=== PATIENT | male | born 1945 | race Hispanic/Latino ===

== ENCOUNTER 2019-05-31 23:51 | Emergency (ER) | payer MEDICARE ==
--- NOTE | 2019-06-01 00:24 | Emergency Department Report ---
ED Altered Mental Status HPI - General Chief Complaint: Altered Mental Status Stated Complaint: MH EVALUATION Time Seen by Provider: 06/01/19 00:02 Source: EMS Mode of arrival: Stretcher Limitations: Altered Mental Status - History of Present Illness Initial Comments: Patient is a 73-year-old male that presents emergency with altered mental status and combative behavior and agitation. Patient is brought in by EMS. Patient is currently oriented 1. Patient is lethargic but arousable. Report received from EMS. EMS states that the patient has been off his meds for 4 weeks and has been refusing his meds per family. Patient then became combative with the family and aggressive towards police. Please call for EMS to transport patient to the hospital. Patient was given Haldol, Benadryl and Versed in route by EMS due to agitation and being combative with EMS. MD Complaint: altered mental status, confusion -: Sudden Severity: severe Consistency of Symptoms: waxing and waning - Related Data Home Medications Medication Instructions Recorded Confirmed Last Taken No Known Home Medications [No 06/01/19 06/02/19 Unknown Reported Home Medications] Allergies Allergy/AdvReac Type Severity Reaction Status Date / Time No Known Allergies Allergy Unverified 06/01/19 01:08 ED Review of Systems ROS: Stated complaint: MH EVALUATION Other details as noted in HPI Comment: Unobtainable due to pts medical conditions ED Past Medical Hx - Past Medical History Previous Medical History?: Yes Hx Hypertension: Yes Hx Psychiatric Treatment: Yes Additional medical history: dementia, schizo, paranoia - Surgical History Past Surgical History?: No Additional Surgical History: uknown - Family History Family history: no significant - Social History Smoking Status: Unknown if ever smoked Substance Use Type: None - Medications Home Medications: Home Medications Medication Instructions Recorded Confirmed Last Taken Type No Known Home Medications [No 06/01/19 06/02/19 Unknown History Reported Home Medications] ED Physical Exam - General Limitations: Altered Mental Status General appearance: alert, lethargic - Head Head exam: Present: atraumatic, normocephalic - Eye Eye exam: Present: normal appearance, PERRL Pupils: Present: normal accommodation - ENT ENT exam: Present: mucous membranes moist - Neck Neck exam: Present: normal inspection - Respiratory Respiratory exam: Present: normal lung sounds bilaterally. Absent: respiratory distress, wheezes, rales - Cardiovascular Cardiovascular Exam: Present: regular rate, normal rhythm. Absent: systolic murmur, diastolic murmur, rubs, gallop - GI/Abdominal GI/Abdominal exam: Present: soft, normal bowel sounds - Rectal Rectal exam: Present: deferred - Extremities Exam Extremities exam: Present: normal inspection - Back Exam Back exam: Present: normal inspection - Neurological Exam Neurological exam: Present: altered - Expanded Neurological Exam Expanded Best Eye Response (Jaz): (2) open to pain Best Motor Response (Jaz): (5) localizes to pain Best Verbal Response (Bryce): (4) confused conversation Jaz Total: 11 - Psychiatric Psychiatric exam: Present: normal affect, normal mood - Skin Skin exam: Present: warm, dry, intact, normal color. Absent: rash - Assessment Assessment Interval: Baseline - Level of Consciousness 1a. Level of Consciousness: arousable/minor stimuli - LOC Questions 1b. LOC Questions: answers 1 question correctly - LOC Command 1c. LOC Commands: performs tasks correctly - Best Gaze 2. Best Gaze: normal - Visual 3. Visual: no visual loss - Facial Palsy 4. Facial Palsy: normal symmetrical movement - Motor Arm 5a. Motor Arm Left: no drift 5b. Motor Arm Right: no drift - Motor Leg 6a. Motor Leg Left: no drift 6b. Motor Leg Right: no drift - Limb Ataxia 7. Limb Ataxia: absent - Sensory 8. Sensory: normal - Best Language 9. Best Language: no aphasia - Dysarthria 10. Dysarthria: normal - Extinction and Inattention 11. Extinction/Inattention: no abnormality - Scoring Total Score: 2 Stroke Severity: Minor Stroke ED Course Vital Signs 05/31/19 06/01/19 06/01/19 23:58 00:00 00:01 Temperature Pulse Rate 89 86 88 Respiratory 20 13 20 Rate Blood Pressure 97/58 Blood Pressure [Left] O2 Sat by Pulse 89 92 90 Oximetry 06/01/19 06/01/19 06/01/19 00:15 00:30 00:45 Temperature Pulse Rate 80 80 77 Respiratory 17 18 17 Rate Blood Pressure 106/62 103/65 107/71 Blood Pressure [Left] O2 Sat by Pulse 100 100 100 Oximetry 06/01/19 06/01/19 06/01/19 01:00 01:15 01:30 Temperature Pulse Rate 77 73 74 Respiratory 12 16 15 Rate Blood Pressure 110/74 105/60 100/57 Blood Pressure [Left] O2 Sat by Pulse 100 100 Oximetry 06/01/19 06/01/19 06/01/19 01:45 02:00 02:05 Temperature Pulse Rate 80 74 Respiratory 15 16 Rate Blood Pressure 118/69 103/58 Blood Pressure [Left] O2 Sat by Pulse 97 96 99 Oximetry 06/01/19 06/01/19 06/01/19 02:15 02:30 02:45 Temperature Pulse Rate 73 74 81 Respiratory 16 16 16 Rate Blood Pressure 101/58 108/65 121/77 Blood Pressure [Left] O2 Sat by Pulse 94 Oximetry 06/01/19 06/01/19 06/01/19 03:00 03:16 08:30 Temperature 97.3 F L Pulse Rate 68 102 H 96 H Respiratory 17 14 20 Rate Blood Pressure 121/77 101/47 Blood Pressure 145/83 [Left] O2 Sat by Pulse 92 95 96 Oximetry 06/01/19 19:30 Temperature 98 F Pulse Rate 83 Respiratory 16 Rate Blood Pressure Blood Pressure 139/67 [Left] O2 Sat by Pulse 100 Oximetry - Reevaluation(s) Reevaluation #1: Patient is lethargic but easy to arouse. Patient is still alert and oriented 2 06/01/19 02:40 Reevaluation #2: Patient is alert and oriented 3. Patient able to stand to get a urine sample. 06/01/19 03:20 Reevaluation #3: I discussed all results with patient. Patient has been placed on a 1013 and will remain in the ER until accepted into appropriate psychiatric facility. 06/01/19 03:53 - Lab Data Result diagrams: 06/01/19 01:05 06/01/19 01:05 Lab Results 06/01/19 06/01/19 06/01/19 Range/Units 01:05 01:05 01:05 WBC 9.0 (4.5-11.0) K/mm3 RBC 4.32 (3.65-5.03) M/mm3 Hgb 14.2 (11.8-15.2) gm/dl Hct 42.0 (35.5-45.6) % MCV 97 H (84-94) fl MCH 33 H (28-32) pg MCHC 34 (32-34) % RDW 15.1 (13.2-15.2) % Plt Count 388 (140-440) K/mm3 Lymph % (Auto) 23.7 (13.4-35.0) % [place] % (Auto) 11.0 H (0.0-7.3) % Eos % (Auto) 1.7 (0.0-4.3) % Baso % (Auto) 0.9 (0.0-1.8) % Lymph # 2.1 (1.2-5.4) K/mm3 [place] # 1.0 H (0.0-0.8) K/mm3 Eos # 0.2 (0.0-0.4) K/mm3 Baso # 0.1 (0.0-0.1) K/mm3 Seg Neutrophils % 62.7 (40.0-70.0) % Seg Neutrophils # 5.6 (1.8-7.7) K/mm3 Sodium 140 (137-145) mmol/L Potassium 3.9 (3.6-5.0) mmol/L Chloride 105.2 (98-107) mmol/L Carbon Dioxide 27 (22-30) mmol/L Anion Gap 12 mmol/L BUN 14 (9-20) mg/dL Creatinine 0.9 (0.8-1.5) mg/dL Estimated GFR > 60 ml/min BUN/Creatinine Ratio 16 % Glucose 104 H (75-100) mg/dL Calcium 9.7 (8.4-10.2) mg/dL Total Bilirubin 0.40 (0.1-1.2) mg/dL AST 19 (5-40) units/L ALT 14 (7-56) units/L Alkaline Phosphatase 135 H (35-129) units/L Total Creatine Kinase 397 H (55-170) units/L Troponin T < 0.010 (0.00-0.029) ng/mL Total Protein 6.6 (6.3-8.2) g/dL Albumin 3.7 L (3.9-5) g/dL Albumin/Globulin Ratio 1.3 % Urine Color (Yellow) Urine Turbidity (Clear) Urine pH (5.0-7.0) Ur Specific [place] (1.003-1.030) Urine Protein (Negative) mg/dL Urine Glucose (UA) (Negative) mg/dL Urine Ketones (Negative) mg/dL Urine Blood (Negative) Urine Nitrite (Negative) Urine Bilirubin (Negative) Urine Urobilinogen (<2.0) mg/dL Ur Leukocyte Esterase (Negative) Urine WBC (Auto) (0.0-6.0) /HPF Urine RBC (Auto) (0.0-6.0) /HPF Hyaline Casts /LPF Urine Mucus /HPF Salicylates < 0.3 L (2.8-20.0) mg/dL Urine Opiates Screen Urine Methadone Screen Acetaminophen (10.0-30.0) ug/mL Ur Barbiturates Screen Ur Phencyclidine Scrn Ur Amphetamines Screen U Benzodiazepines Scrn Urine Cocaine Screen U Marijuana (THC) Screen Drugs of Abuse Note Plasma/Serum Alcohol (0-0.07) % 06/01/19 06/01/19 06/01/19 Range/Units 01:05 01:05 03:20 WBC (4.5-11.0) K/mm3 RBC (3.65-5.03) M/mm3 Hgb (11.8-15.2) gm/dl Hct (35.5-45.6) % MCV (84-94) fl MCH (28-32) pg MCHC (32-34) % RDW (13.2-15.2) % Plt Count (140-440) K/mm3 Lymph % (Auto) (13.4-35.0) % [place] % (Auto) (0.0-7.3) % Eos % (Auto) (0.0-4.3) % Baso % (Auto) (0.0-1.8) % Lymph # (1.2-5.4) K/mm3 [place] # (0.0-0.8) K/mm3 Eos # (0.0-0.4) K/mm3 Baso # (0.0-0.1) K/mm3 Seg Neutrophils % (40.0-70.0) % Seg Neutrophils # (1.8-7.7) K/mm3 Sodium (137-145) mmol/L Potassium (3.6-5.0) mmol/L Chloride (98-107) mmol/L Carbon Dioxide (22-30) mmol/L Anion Gap mmol/L BUN (9-20) mg/dL Creatinine (0.8-1.5) mg/dL Estimated GFR ml/min BUN/Creatinine Ratio % Glucose (75-100) mg/dL Calcium (8.4-10.2) mg/dL Total Bilirubin (0.1-1.2) mg/dL AST (5-40) units/L ALT (7-56) units/L Alkaline Phosphatase (35-129) units/L Total Creatine Kinase (55-170) units/L Troponin T (0.00-0.029) ng/mL Total Protein (6.3-8.2) g/dL Albumin (3.9-5) g/dL Albumin/Globulin Ratio % Urine Color Yellow (Yellow) Urine Turbidity Clear (Clear) Urine pH 5.0 (5.0-7.0) Ur Specific [place] 1.020 (1.003-1.030) Urine Protein <15 mg/dl (Negative) mg/dL Urine Glucose (UA) Neg (Negative) mg/dL Urine Ketones Tr (Negative) mg/dL Urine Blood Neg (Negative) Urine Nitrite Neg (Negative) Urine Bilirubin Neg (Negative) Urine Urobilinogen 2.0 (<2.0) mg/dL Ur Leukocyte Esterase Neg (Negative) Urine WBC (Auto) 2.0 (0.0-6.0) /HPF Urine RBC (Auto) 2.0 (0.0-6.0) /HPF Hyaline Casts 3 /LPF Urine Mucus Few /HPF Salicylates (2.8-20.0) mg/dL Urine Opiates Screen Urine Methadone Screen Acetaminophen < 5.0 L (10.0-30.0) ug/mL Ur Barbiturates Screen Ur Phencyclidine Scrn Ur Amphetamines Screen U Benzodiazepines Scrn Urine Cocaine Screen U Marijuana (THC) Screen Drugs of Abuse Note Plasma/Serum Alcohol < 0.01 (0-0.07) % 06/01/19 Range/Units 03:20 WBC (4.5-11.0) K/mm3 RBC (3.65-5.03) M/mm3 Hgb (11.8-15.2) gm/dl Hct (35.5-45.6) % MCV (84-94) fl MCH (28-32) pg MCHC (32-34) % RDW (13.2-15.2) % Plt Count (140-440) K/mm3 Lymph % (Auto) (13.4-35.0) % [place] % (Auto) (0.0-7.3) % Eos % (Auto) (0.0-4.3) % Baso % (Auto) (0.0-1.8) % Lymph # (1.2-5.4) K/mm3 [place] # (0.0-0.8) K/mm3 Eos # (0.0-0.4) K/mm3 Baso # (0.0-0.1) K/mm3 Seg Neutrophils % (40.0-70.0) % Seg Neutrophils # (1.8-7.7) K/mm3 Sodium (137-145) mmol/L Potassium (3.6-5.0) mmol/L Chloride (98-107) mmol/L Carbon Dioxide (22-30) mmol/L Anion Gap mmol/L BUN (9-20) mg/dL Creatinine (0.8-1.5) mg/dL Estimated GFR ml/min BUN/Creatinine Ratio % Glucose (75-100) mg/dL Calcium (8.4-10.2) mg/dL Total Bilirubin (0.1-1.2) mg/dL AST (5-40) units/L ALT (7-56) units/L Alkaline Phosphatase (35-129) units/L Total Creatine Kinase (55-170) units/L Troponin T (0.00-0.029) ng/mL Total Protein (6.3-8.2) g/dL Albumin (3.9-5) g/dL Albumin/Globulin Ratio % Urine Color (Yellow) Urine Turbidity (Clear) Urine pH (5.0-7.0) Ur Specific [place] (1.003-1.030) Urine Protein (Negative) mg/dL Urine Glucose (UA) (Negative) mg/dL Urine Ketones (Negative) mg/dL Urine Blood (Negative) Urine Nitrite (Negative) Urine Bilirubin (Negative) Urine Urobilinogen (<2.0) mg/dL Ur Leukocyte Esterase (Negative) Urine WBC (Auto) (0.0-6.0) /HPF Urine RBC (Auto) (0.0-6.0) /HPF Hyaline Casts /LPF Urine Mucus /HPF Salicylates (2.8-20.0) mg/dL Urine Opiates Screen Presumptive negative Urine Methadone Screen Presumptive negative Acetaminophen (10.0-30.0) ug/mL Ur Barbiturates Screen Presumptive negative Ur Phencyclidine Scrn Presumptive negative Ur Amphetamines Screen Presumptive negative U Benzodiazepines Scrn Presumptive positive Urine Cocaine Screen Presumptive negative U Marijuana (THC) Screen Presumptive negative Drugs of Abuse Note Disclamer Plasma/Serum Alcohol (0-0.07) % - EKG Data -: EKG Interpreted by Me EKG shows normal: sinus rhythm, axis, intervals, ST-T waves Rate: normal Interpretation: other (right bundle-branch block and wide QRS) - Radiology Data Radiology results: report reviewed CT head/brain wo con INDICATION / CLINICAL INFORMATION: Altered Mental Status. TECHNIQUE: All CT scans at this location are performed using CT dose reduction for ALARA by means of automated exposure control. COMPARISON: None available. FINDINGS: Mild changes of cerebral atrophy. No mass or mass effect is seen. There is no evidence of intracranial hemorrhage. No obvious area of infarction is identified. Visualized paranasal sinuses are clear. IMPRESSION: Mild cerebral atrophy. No acute findings CHEST 1 VIEW INDICATION / CLINICAL INFORMATION: Altered Mental Status. COMPARISON: None available. FINDINGS: SUPPORT DEVICES: None. HEART / MEDIASTINUM: No significant abnormality. LUNGS / PLEURA: Increased left retrocardiac density represents either atelectasis or pleural fluid No pneumothorax. ADDITIONAL FINDINGS: No significant additional findings. IMPRESSION: Left first cardiac density representing either atelectasis or pleural fluid. The right lung is clear. - Medical Decision Making Patient is a 73-year-old male Dr. Jain for acute agitation and aggressive behavior as well as being combative. By EMS and given Haldol, Versed and Benadryl in route. Patient is somnolent in the ER. Patient is lethargic but arousable. Patient has a history of dementia. Patient 1013 for acute psychosis. Patient will remain in to the ER and took Ceftin to appropriate psychiatric facility. Patient's labs unremarkable. Patient's chest x-ray is negative for acute findings. - Differential Diagnosis medical clearance. Acute psychosis. Agitation Critical care attestation.: If time is entered above; I have spent that time in minutes in the direct care of this critically ill patient, excluding procedure time. ED Disposition Clinical Impression: Combative behavior, Agitation, Acute psychosis Altered mental state Qualifiers: Altered mental status type: unspecified Qualified Code(s): R41.82 - Altered mental status, unspecified Disposition: DC-01 TO HOME OR SELFCARE Is pt being admited?: No Does the pt Need Aspirin: No Condition: Stable Additional Instructions: Patient is medically clear Referrals: CHARLI GAFFNEY MD [Primary Care Provider] - 2-3 Days Time of Disposition: 03:39
[2019-06-01] MEDS ORDERED: NACL 0.9% 1000 ML 1,000 ML IV ONE (00:40)
--- NOTE | 2019-06-01 01:12 | XRay Report ---
CHEST 1 VIEW INDICATION / CLINICAL INFORMATION: Altered Mental Status. COMPARISON: None available. FINDINGS: SUPPORT DEVICES: None. HEART / MEDIASTINUM: No significant abnormality. LUNGS / PLEURA: Increased left retrocardiac density represents either atelectasis or pleural fluid No pneumothorax. ADDITIONAL FINDINGS: No significant additional findings. IMPRESSION: Left first cardiac density representing either atelectasis or pleural fluid. The right lung is clear. Signer Name: Alberto Ferguson MD FACR Signed: 06/01/2019 1:07 AM Workstation Name: [id number]
--- NOTE | 2019-06-01 01:24 | Cat Scan Report ---
CT head/brain wo con INDICATION / CLINICAL INFORMATION: Altered Mental Status. TECHNIQUE: All CT scans at this location are performed using CT dose reduction for ALARA by means of automated e xposure control. COMPARISON: None available. FINDINGS: Mild changes of cerebral atrophy. No mass or mass effect is seen. There is no evidence of intracrania l hemorrhage. No obvious area of infarction is identified. Visualized paranasal sinuses are clear. IMPRESSION: Mild cerebral atrophy. No acute findings Signer Name: Alberto Ferguson MD FACR Signed: 06/01/2019 1:19 AM Workstation Name: [id number]
[2019-06-01 01:32] LABS: Basophils # (Auto) 0.1 K/mm3 (0.0-0.1); Basophils % (Auto) 0.9 % (0.0-1.8); Eosinophils # (Auto) 0.2 K/mm3 (0.0-0.4); Eosinophils % (Auto) 1.7 % (0.0-4.3); Hemoglobin 14.2 gm/dl (11.8-15.2); Lymphocytes # (Auto) 2.1 K/mm3 (1.2-5.4); Lymphocytes % (Auto) 23.7 % (13.4-35.0); Mean Corpuscular HGB Conc 34 % (32-34); Mean Corpuscular Volume 97 fl (84-94); Platelet Count 388 K/mm3 (140-440); Red Blood Count 4.32 M/mm3 (3.65-5.03); Red Cell Distribution Width 15.1 % (13.2-15.2)
[2019-06-01 02:09] LABS: Alanine Aminotransferase 14 units/L (7-56); Albumin 3.7 g/dL (3.9-5); BUN/Creatinine Ratio 16; Blood Urea Nitrogen 14 mg/dL (9-20); Calcium 9.7 mg/dL (8.4-10.2); Hemolysis Index 5
[2019-06-01 03:48] LABS: Bilirubin,Urine NEG (Negative); Blood,Urine NEG (Negative); Color,Urine Yellow (Yellow); Hyaline Casts,Urine 3 /LPF; Mucus,Urine FEW /HPF; Protein,Urine <15 mg/dL mg/dL (Negative)
[2019-06-01 03:50] LABS: Amphetamine Screen,Urine PRESUMPTIVE NEGATIVE; Cannabinoid Screen,Urine PRESUMPTIVE NEGATIVE; Cocaine Screen,Urine PRESUMPTIVE NEGATIVE; Methadone Screen,Urine PRESUMPTIVE NEGATIVE; Opiate Screen,Urine PRESUMPTIVE NEGATIVE
[2019-06-01 04:33] LABS: Benzodiazepines Screen,Urine PRESUMPTIVE POSITIVE
[2019-06-01] MEDS ORDERED: ATIVAN IM PRN ×2 (09:23→16:08)
--- NOTE | 2019-06-01 13:44 | Consultation ---
History of Present Illness - Reason for Consult Consult date: 06/01/19 Reason for consult: Initial Psychiatric Evaluation - Chief Complaint Chief complaint: " I want to go home" - History of Present Psychiatric Illness Patient is a 73-year-old male that presents emergency with altered mental status and combative behavior and agitation. Per record patient was brought in by EMS. Patient is currently oriented 1. Patient continues to be lethargic but arousable. Report received from EMS. EMS states that the patient has been off his meds for 4 weeks and has been refusing his meds per family. Patient then became combative with the family and aggressive towards police. Please call for EMS to transport patient to the hospital. Patient states, " I don't why I'm here." Patient thought process is impoverished and disorganized. Responses to questions are not logical. Per assigned RN patient received Ativan 1mg IM at approximately 1100am due to inappropriate behaviors such as yelling, removing IV's, and taking off clothes. Current Psychiatric Medications: Unable to to Assess. Past Psychiatric History: Unable to to Assess. Past Medication Trials: Unable to to Assess. History of Trauma/Abuse: Unable to to Assess. History of Alcohol/Drug Abuse: Unable to to Assess. Social History: Unable to to Assess. Family History of Psychiatric Illness/Substance Abuse: Unable to to Assess. Medications and Allergies Allergies Allergy/AdvReac Type Severity Reaction Status Date / Time No Known Allergies Allergy Unverified 06/01/19 01:08 Home Medications Medication Instructions Recorded Confirmed Last Taken Type No Known Home Medications [No 06/01/19 06/01/19 Unknown History Reported Home Medications] Active Meds: Active Medications Lorazepam (Ativan) 1 mg IM Q2H PRN PRN Reason: Agitation Stop: 06/02/19 23:59 Last Admin: 06/01/19 10:10 Dose: 1 mg Documented by: Mental Status Exam - Vital signs Last Vital Signs Temp 97.3 F L 06/01/19 08:30 Pulse 96 H 06/01/19 08:30 Resp 20 06/01/19 08:30 BP 145/83 06/01/19 08:30 Pulse Ox 96 06/01/19 08:30 - Exam Narrative exam: Mental Status Exam Appearance: calm Behavior: poor eye contact Speech: regular rate and tone Mood: " I want to go home" Affect: unable to assess Thought Process: disorganized, impoverished Thought Content: unable to assess Motor Activity: laying in bed Cognition: A/O x 1 Insight: poor Judgment: poor Results Result Diagrams: 06/01/19 01:05 06/01/19 01:05 Abnormal lab results 06/01/19 06/01/19 06/01/19 Range/Units 01:05 01:05 01:05 MCV 97 H (84-94) fl MCH 33 H (28-32) pg [place] % (Auto) 11.0 H (0.0-7.3) % [place]bert # 1.0 H (0.0-0.8) K/mm3 Glucose 104 H (75-100) mg/dL Alkaline Phosphatase 135 H (35-129) units/L Total Creatine Kinase 397 H (55-170) units/L Albumin 3.7 L (3.9-5) g/dL Salicylates < 0.3 L (2.8-20.0) mg/dL Acetaminophen (10.0-30.0) ug/mL 06/01/19 Range/Units 01:05 MCV (84-94) fl MCH (28-32) pg [place] % (Auto) (0.0-7.3) % [place]bert # (0.0-0.8) K/mm3 Glucose (75-100) mg/dL Alkaline Phosphatase (35-129) units/L Total Creatine Kinase (55-170) units/L Albumin (3.9-5) g/dL Salicylates (2.8-20.0) mg/dL Acetaminophen < 5.0 L (10.0-30.0) ug/mL All other labs normal. Assessment and Plan Assessment and plan: Impression: Altered Mental Status. Today the patient is disorganized with impoverished thought content. Exhibiting inappropriate behaviors. Received PRN for severe agitation. Provider unable to fully assess due to disorganized t hought process. Recommendation/Plan: 1. Continue 1013. 2. Will reassess in 24 hours. 3. Attempt to gain collateral to determine proper disposition. 4. Continue Ativan 1mg IM [id number] PRN severe agitation. Aricept 5mg po QAM memory. Discussed possible GI disturbances. Disposition: Pending placement to [facility]. Staffed with Dr. Umu Sosa.
[2019-06-01] MEDS ORDERED: ARICEPT PO SCH (17:00)
[2019-06-01 21:45] VITALS: BP 139/67
== END 2019-06-02 01:39 | disposition home or self-care (01) ==
LOC: EEVIPCON 23:51 → ED 23:51
DX: R41.82 Altered mental status, unspecified (principal); F23 Brief psychotic disorder; I10 Essential (primary) hypertension; F20.9 Schizophrenia, unspecified; F03.90 Unspecified dementia, unspecified severity, without behavioral disturbance, psychotic disturbance, mood disturbance, and anxiety
CPT/HCPCS: 93005; 96360; 96372; J2060; J7030

== ENCOUNTER 2019-06-01 23:30 | Inpatient (IN) | payer MEDICARE ==
[2019-06-02] MEDS: HALDOL PO PRN ×3 (02:45→15:57)
[2019-06-02] MEDS: ATIVAN PO PRN ×3 (02:45→15:57)
[2019-06-02 02:52] LABS: Basophils # (Auto) 0.1 K/mm3 (0.0-0.1); Basophils % (Auto) 1.3 % (0.0-1.8); Eosinophils # (Auto) 0.3 K/mm3 (0.0-0.4); Eosinophils % (Auto) 2.8 % (0.0-4.3); Hematocrit 46.8 % (35.5-45.6); Hemoglobin 15.7 gm/dl (11.8-15.2); Lymphocytes # (Auto) 3.6 K/mm3 (1.2-5.4); Mean Corpuscular HGB Conc 34 % (32-34); Mean Corpuscular Volume 96 fl (84-94); Monocytes # (Auto) 0.8 K/mm3 (0.0-0.8); Monocytes % (Auto) 8.7 % (0.0-7.3); Platelet Count 455 K/mm3 (140-440); Red Blood Count 4.85 M/mm3 (3.65-5.03)
[2019-06-02 03:19] LABS: Alanine Aminotransferase 17 units/L (7-56); Albumin 4.2 g/dL (3.9-5); BUN/Creatinine Ratio 15; Blood Urea Nitrogen 12 mg/dL (9-20); Calcium 10.1 mg/dL (8.4-10.2); Hemolysis Index 28
--- NOTE | 2019-06-02 07:32 | History and Physical Report ---
GP History & Physical - History of Present Illness Date of admission: 06/01/19 Date of Examination: 06/02/19 Reason for Admission: Danger to self, Danger to others, Unable to care for self Chief Complaint: I don't know History of Present Illness: Patient is a 73-year-old male with reported history of Schizophrenia and Dementia. He presents with altered mental status, combative behavior and agitation. Patient is awake and pacing. Gait is unsteady. He is not able to engage in meaningful conversation. Speech is difficult to discern. Per ED notes from yesterday, patient was brought in by EMS. Patient is currently oriented 1. Patient is lethargic but arousable. EMS states that the patient has been off his meds for 4 weeks and has been refusing his meds per family. Patient then became combative with the family and aggressive towards police. Patient was given Haldol, Benadryl and Versed by EMS due to agitation and being combative with EMS. Legal Status: Involuntary Patient Problems: Current Active Problems Major neurocognitive disorder due to Alzheimer's disease, with behavioral disturbance (Acute) Schizophrenia (Acute) Substance History - Substance History Drug Use: other (Unknown) Past psychiatric history - Past Medical History Past Medical History: hypertension - past Psychiatric treatment and history Psych: Schizophrenia - Social History Social history: lives with family Review of Systems ROS unobtainable: due to mental status Results - Results Labs/Vitals: Laboratory Last Values WBC 9.7 K/mm3 (4.5-11.0) 06/02/19 02:20 RBC 4.85 M/mm3 (3.65-5.03) 06/02/19 02:20 Hgb 15.7 gm/dl (11.8-15.2) H 06/02/19 02:20 Hct 46.8 % (35.5-45.6) H 06/02/19 02:20 MCV 96 fl (84-94) H 06/02/19 02:20 MCH 32 pg (28-32) 06/02/19 02:20 MCHC 34 % (32-34) 06/02/19 02:20 RDW 15.0 % (13.2-15.2) 06/02/19 02:20 Plt Count 455 K/mm3 (140-440) H 06/02/19 02:20 Lymph % (Auto) 37.0 % (13.4-35.0) H 06/02/19 02:20 Iron % (Auto) 8.7 % (0.0-7.3) H 06/02/19 02:20 Eos % (Auto) 2.8 % (0.0-4.3) 06/02/19 02:20 Baso % (Auto) 1.3 % (0.0-1.8) 06/02/19 02:20 Lymph # 3.6 K/mm3 (1.2-5.4) 06/02/19 02:20 Iron # 0.8 K/mm3 (0.0-0.8) 06/02/19 02:20 Eos # 0.3 K/mm3 (0.0-0.4) 06/02/19 02:20 Baso # 0.1 K/mm3 (0.0-0.1) 06/02/19 02:20 Seg Neutrophils % 50.2 % (40.0-70.0) 06/02/19 02:20 Seg Neutrophils # 4.9 K/mm3 (1.8-7.7) 06/02/19 02:20 Sodium 139 mmol/L (137-145) 06/02/19 02:20 Potassium 4.7 mmol/L (3.6-5.0) D 06/02/19 02:20 Chloride 101.8 mmol/L (98-107) 06/02/19 02:20 Carbon Dioxide 24 mmol/L (22-30) 06/02/19 02:20 18 mmol/L 06/02/19 02:20 BUN 12 mg/dL (9-20) 06/02/19 02:20 0.8 mg/dL (0.8-1.5) 06/02/19 02:20 Estimated GFR > 60 ml/min 06/02/19 02:20 15 % 06/02/19 02:20 Glucose 126 mg/dL (75-100) H 06/02/19 02:20 5.5 % (4-6) 06/02/19 02:20 Calcium 10.1 mg/dL (8.4-10.2) 06/02/19 02:20 0.60 mg/dL (0.1-1.2) 06/02/19 02:20 AST 28 units/L (5-40) 06/02/19 02:20 ALT 17 units/L (7-56) 06/02/19 02:20 149 units/L (35-129) H 06/02/19 02:20 7.6 g/dL (6.3-8.2) 06/02/19 02:20 4.2 g/dL (3.9-5) 06/02/19 02:20 1.2 % 06/02/19 02:20 TSH 1.210 mlU/mL (0.270-4.200) 06/02/19 02:20 Physical Examination - Constitutional General appearance: Present: well-nourished, disheveled - EENT Eyes: Present: PERRL, EOM intact ENT: hearing intact, clear oral mucosa - Neck Neck: Present: supple, normal ROM - Respiratory Respiratory effort: normal Mental Status Exam - Exam Affect: agitated Mood: congruent with affect Thought Process: Disorganized, Disoriented Speech: incoherent Concentration: unable to pay attention Motor activity: agitated Level of consciousness: alert Memory: Recent Impaired, Remote Impaired Interaction: uncooperative Mini mental status exam(if necessary): 0-17 Assessment and Plan - Psychiatric problem (1) Major neurocognitive disorder due to Alzheimer's disease, with behavioral disturbance Current Visit: Yes Status: Acute plan to address problem: Patient will be admitted for inpatient psychiatric evaluation, medication adjustment and close monitoring The patient's behavior, mood, sleep and appetite will be closely monitored. Patient will be enrolled in individual and group therapeutic sessions and encouraged to attend. Patient will be provided with a safe and structured environment. Patient's physical health needs will be addressed by the Hospitalist. Social Assessment will be completed and the Office Technician will work with patient and family to ensure a suitable and safe disposition Medication adjustment will be made as clinically indicated. Will do UA Will start Divalproex DR 250mg bid and Risperidone 0.5mg bid for agitation and psychosis. Will start Melatonin for sleep/wake cycle regulation. Will start Trazodone 50mg qhs prn insomnia. (2) Schizophrenia Current Visit: Yes Status: Acute plan to address problem: As above (3) Altered mental state Current Visit: No Status: Acute Qualifiers: Altered mental status type: unspecified Qualified Code(s): R41.82 - Altered mental status, unspecified plan to address problem: As above Physician Certification - Certification Statement Physician Certification Statement: This is an acknowledgement statement that LAMIN RODRIGES is a 73 year old M who requires inpatient psychiatric admission for treatment which could reasonably be expected to improve the patient's condition for aggression and confusion Estimated period of time patient will need to remain in the hospital: 7 days Plan for post-hospital care: out-patient care
[2019-06-02] MEDS: RisperDAL PO SCH ×2 (09:08→21:49)
--- NOTE | 2019-06-02 14:12 | Consultation ---
History of Present Illness - Reason for Consult Consult date: 06/02/19 HYPERTENSION Requesting physician: RADHA ERICKSON - History of Present Illness Patient is a 73-year-old male who is admitted currently to the adult medical psych unit secondary to exacerbation of his paranoid schizophrenia refusing his medications for almost a month and with hallucination. The time of my evaluation the patient is stable no acute distress only past medical history documented on the chart on chart review is hypertension. Patient understands and denies any chest pain nausea vomiting or diarrhea visibly visualized well healed surgical scar in the abdomen he could not articulate why he had the surgery at one point states he had a spleen taken out to the point says it was a sliver. No other complaints at this time before from nursing staff. Past History Past Medical History: hypertension Past Surgical History: No surgical history Social history: lives with family Family history: no significant family history Medications and Allergies Allergies Allergy/AdvReac Type Severity Reaction Status Date / Time No Known Allergies Allergy Unverified 06/01/19 01:08 Home Medications Medication Instructions Recorded Confirmed Last Taken Type No Known Home Medications [No 06/01/19 06/02/19 Unknown History Reported Home Medications] Active Meds: Active Medications Divalproex Sodium (Depakote Dr) 250 mg PO BID [facility] Last Admin: 06/02/19 09:08 Dose: 250 mg Documented by: Haloperidol (Haldol) 5 mg PO Q6H PRN PRN Reason: Agitation Last Admin: 06/02/19 08:55 Dose: 5 mg Documented by: Haloperidol Lactate (Haldol) 5 mg IM Q6H PRN PRN Reason: Agitation Lorazepam (Ativan) 2 mg PO Q6HR PRN PRN Reason: Agitation Last Admin: 06/02/19 08:55 Dose: 2 mg Documented by: Lorazepam (Ativan) 2 mg IM Q6HR PRN PRN Reason: Agitation Melatonin (Melatonin) 5 mg PO QHS [facility] Risperidone (Risperdal) 0.5 mg PO BID [facility] Last Admin: 06/02/19 09:08 Dose: 0.5 mg Documented by: Review of Systems All systems: negative Constitutional: no fatigue, no weakness, no malaise, no lethargy, no chronic headaches Ears, nose, mouth and throat: no headache, no vertigo Cardiovascular: no chest pain, no orthopnea, no palpitations, no rapid/irregular heart beat, no dyspnea on exertion Respiratory: no cough, no cough with sputum, no excessive sputum, no shortness of breath, no dyspnea on exertion Gastrointestinal: no abdominal pain, no nausea, no vomiting, no diarrhea Exam - Physical Exam Narrative exam: VITAL SIGNS: Reviewed. GENERAL: The patient appears normally developed, Vital signs as documented. HEAD: No signs of head trauma. EYES: Pupils are equal. Extraocular motions intact. EARS: Hearing grossly intact. MOUTH: Oropharynx is normal. NECK: No adenopathy, no JVD. CHEST: Chest with clear breath sounds bilaterally. No wheezes, rales, or rhonchi. CARDIAC: Regular rate and rhythm. S1 and S2, without murmurs, gallops, or rubs. VASCULAR: No Edema. Peripheral pulses normal and equal in all extremities. ABDOMEN: Soft, non tender and non distended. No rebound or guarding, and no masses palpated. Bowel Sounds normal. MUSCULOSKELETAL: Good range of motion of all major joints. Extremities without clubbing, cyanosis or edema. NEUROLOGIC EXAM: Alert and oriented x 3 No focal sensory or strength deficits. Speech normal. Follows commands. PSYCHIATRIC: Mood normal. SKIN: Well-healed surgical scar across the abdomen. - Constitutional Vitals: Temp Pulse Resp BP Pulse Ox 97.2 F L 98 H 18 127/67 94 06/02/19 08:31 06/02/19 08:31 06/02/19 08:31 06/02/19 08:31 06/02/19 08:31 Results - Labs CBC & Chem 7: 06/02/19 02:20 06/02/19 02:20 Labs: Abnormal lab results 06/02/19 06/02/19 Range/Units 02:20 02:20 Hgb 15.7 H (11.8-15.2) gm/dl Hct 46.8 H (35.5-45.6) % MCV 96 H (84-94) fl Plt Count 455 H (140-440) K/mm3 Lymph % (Auto) 37.0 H (13.4-35.0) % [place] % (Auto) 8.7 H (0.0-7.3) % Glucose 126 H (75-100) mg/dL Alkaline Phosphatase 149 H (35-129) units/L Assessment and Plan Patient is a 73-year-old male who is admitted currently to the adult medical psych unit secondary to exacerbation of his paranoid schizophrenia refusing his medications for almost a month and with hallucination. The time of my evalua tion the patient is stable no acute distress only past medical history documented on the chart on chart review is hypertension. Patient understands and denies any chest pain nausea vomiting or diarrhea visibly visualized well healed surgical scar in the abdomen he could not articulate why he had the surgery at one point states he had a spleen taken out to the point says it was a sliver. No other complaints at this time before from nursing staff. HTN -STABLE, OBTAIN HOME MEDS AND NOTIFY MD WHEN OBTAINED SCHIZOPHRENIA -MANAGEMENT PER PSYCH PLAN DISCUSSED WITH PATIENT AND NURSING STAFF Thank you for allowing us take part in the care of your patient.
[2019-06-02] MEDS: MELATONIN PO SCH (21:52)
[2019-06-02] MEDS: ATIVAN IM PRN (23:04)
[2019-06-02] MEDS: HALDOL IM PRN (23:04)
--- NOTE | 2019-06-03 08:55 | Progress Note ---
Subjective Date of service: 06/03/19 Principal diagnosis: Dementia with behavioral disturbance, Schizophrenia Subjective Comment: Patient is confused, agitated, difficult to redirect and aggressive. He is unsteady but wants to pace. He is on 1:1. He received PRN medications last night and they seem to calm him this morning. He feeds himself and his appetite is good. Sleep is fragmented. 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 Patient will be enrolled in individual and group therapeutic sessions and encouraged to attend. Patient will be provided with a safe and structured environment. Patient's physical health needs will be addressed by the Hospitalist. Social Assessment will be completed and the Health And Wellness Advisor will work with patient and family to ensure a suitable and safe disposition Medication adjustment will be made as clinically indicated. Continue Divalproex DR 250mg bid and Risperidone 0.5mg bid for agitation and psychosis (06/03) Continue Melatonin for sleep/wake cycle regulation (06/03) Continue Trazodone 50mg qhs prn insomnia (06/03) (2) Schizophrenia Current Visit: Yes Status: Acute Plan to address problem: As above (3) Altered mental state Current Visit: No Status: Acute Qualifiers: Altered mental status type: unspecified Qualified Code(s): R41.82 - Altered mental status, unspecified
[2019-06-03] MEDS: RisperDAL PO SCH ×2 (11:40→22:09)
[2019-06-03] MEDS: ATIVAN PO PRN ×2 (11:41→22:09)
[2019-06-03] MEDS: MELATONIN PO SCH (22:09)
[2019-06-04 07:46] LABS: Chol/HDL Ratio 4.07 %
--- NOTE | 2019-06-04 08:51 | Progress Note ---
Subjective Date of service: 06/04/19 Principal diagnosis: Dementia with behavioral disturbance, Schizophrenia Subjective Comment: Patient is calm this morning but gets to be intermittently agitated, difficult to redirect and aggressive. He is unsteady but wants to pace. He is on 1:1. He feeds himself and his appetite is good. Sleep is good. 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 Patient will be enrolled in individual and group therapeutic sessions and encouraged to attend. Patient will be provided with a safe and structured environment. Patient's physical health needs will be addressed by the Hospitalist. Social Assessment will be completed and the [employer] Board Certified Orthotist will work with patient and family to ensure a suitable and safe disposition Medication adjustment will be made as clinically indicated. Continue Divalproex DR 250mg bid and Risperidone 0.5mg bid for agitation and psychosis (06/03) Continue Melatonin for sleep/wake cycle regulation (06/03) Continue Trazodone 50mg qhs prn insomnia (06/03) (2) Schizophrenia Current Visit: Yes Status: Acute (3) Altered mental state Current Visit: No Status: Acute Qualifiers: Altered mental status type: unspecified Qualified Code(s): R41.82 - Altered mental status, unspecified
[2019-06-04] MEDS: RisperDAL PO SCH ×2 (10:33→22:09)
[2019-06-04] MEDS: ATIVAN PO PRN (13:00)
[2019-06-04] MEDS: MELATONIN PO SCH (22:09)
--- NOTE | 2019-06-05 09:06 | Progress Note ---
Subjective Date of service: 06/05/19 Principal diagnosis: Dementia with behavioral disturbance, Schizophrenia Subjective Comment: Patient intermittently agitated, difficult to redirect and aggressive. He is unsteady but wants to pace. He is on 1:1. He feeds himself and his appetite is good. Sleep is good. Objective - Criteria for Continued Treatment Criteria for Continued Treatment: Improving Level of Functioning, Stablizing Level of Functioning, Improving Emotional/Socia - Mental Status Mental Status: Oriented x 1 Person only Assessment and Plan - Patient Problems (1) Major neurocognitive disorder due to Alzheimer's disease, with behavioral disturbance Current Visit: Yes Status: Acute Plan to address problem: Patient will be admitted for inpatient psychiatric evaluation, medication adjustment and close monitoring The patient's behavior, mood, sleep and appetite will be closely monitored. Patient will be enrolled in individual and group therapeutic sessions and encouraged to attend. Patient will be provided with a safe and structured environment. Patient's physical health needs will be addressed by the Hospitalist. Social Assessment will be completed and the Glass Beveller will work with patient and family to ensure a suitable and safe disposition Medication adjustment will be made as clinically indicated. Continue Divalproex DR 250mg bid for mood Increase Risperidone to 1mg bid for agitation and psychosis (06/05) Continue Melatonin for sleep/wake cycle regulation (06/03) Continue Trazodone 50mg qhs prn insomnia (06/03) (2) Schizophrenia Current Visit: Yes Status: Acute (3) Altered mental state Current Visit: No Status: Acute Qualifiers: Altered mental status type: unspecified Qualified Code(s): R41.82 - Altered mental status, unspecified
[2019-06-05] MEDS ORDERED: RisperDAL PO SCH (09:13)
[2019-06-05] MEDS: RisperDAL PO SCH ×2 (10:23→21:23)
[2019-06-05] MEDS: ATIVAN IM PRN (10:50)
[2019-06-05] MEDS: HALDOL IM PRN (10:50)
[2019-06-05] MEDS: ATIVAN PO PRN (21:23)
[2019-06-05] MEDS: MELATONIN PO SCH (21:23)
[2019-06-06] MEDS: RisperDAL PO SCH ×2 (09:10→22:41)
[2019-06-06] MEDS: HALDOL IM PRN (14:16)
[2019-06-06] MEDS: ATIVAN IM PRN (14:16)
[2019-06-06] MEDS: MELATONIN PO SCH (22:41)
[2019-06-06] MEDS: ATIVAN PO PRN (22:41)
[2019-06-06] MEDS: HALDOL PO PRN (22:45)
[2019-06-07] MEDS: RisperDAL PO SCH ×2 (11:34→21:53)
--- NOTE | 2019-06-07 15:09 | Progress Note ---
Subjective Date of service: 06/07/19 Principal diagnosis: Dementia with behavioral disturbance, Schizophrenia Subjective Comment: Patient is calmer and cooperative with cares. He is compliant with medications. No reported or observed side effects. He is intermittently agitated, easier to redirect. He is unsteady but wants to pace. He is on 1:1. He feeds himself and his appetite is good. Sleep is good. 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 Patient will be enrolled in individual and group therapeutic sessions and encouraged to attend. Patient will be provided with a safe and structured environment. Patient's physical health needs will be addressed by the Hospitalist. Social Assessment will be completed and the Diabetes Territory Manager will work with patient and family to ensure a suitable and safe disposition Medication adjustment will be made as clinically indicated. Continue Divalproex DR 250mg bid for mood Continue Risperidone to 1mg bid for agitation and psychosis (06/05) Continue Melatonin for sleep/wake cycle regulation (06/03) Continue Trazodone 50mg qhs prn insomnia (06/03) (2) Schizophrenia Current Visit: Yes Status: Acute Plan to address problem: As above (3) Altered mental state Current Visit: No Status: Acute Qualifiers: Altered mental status type: unspecified Qualified Code(s): R41.82 - Altered mental status, unspecified Plan to address problem: As above
[2019-06-07] MEDS: MELATONIN PO SCH (21:53)
[2019-06-08] MEDS: HALDOL PO PRN (01:02)
[2019-06-08] MEDS: HALDOL IM PRN (04:56)
[2019-06-08] MEDS: ATIVAN IM PRN (04:57)
[2019-06-08] MEDS: RisperDAL PO SCH ×2 (10:12→21:09)
[2019-06-08] MEDS: MELATONIN PO SCH (21:08)
[2019-06-08] MEDS: ATIVAN PO PRN (21:08)
[2019-06-09] MEDS: RisperDAL PO SCH ×2 (09:30→22:04)
[2019-06-09] MEDS: MELATONIN PO SCH (22:04)
[2019-06-09] MEDS: HALDOL PO PRN (22:04)
[2019-06-09] MEDS: ATIVAN PO PRN (22:04)
--- NOTE | 2019-06-10 10:46 | Progress Note ---
Subjective Date of service: 06/09/19 Principal diagnosis: Dementia with behavioral disturbance, Schizophrenia Subjective Comment: Patient confused but calm and cooperative with cares. He is compliant with medications. No reported or observed side effects. He is intermittently agitated, easier to redirect. He is unsteady but wants to pace. He is on 1:1. He feeds himself and his appetite is good. Sleep is good. 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 Patient will be enrolled in individual and group therapeutic sessions and encouraged to attend. Patient will be provided with a safe and structured environment. Patient's physical health needs will be addressed by the Hospitalist. Social Assessment will be completed and the Cat Breeder will work with patient and family to ensure a suitable and safe disposition Medication adjustment will be made as clinically indicated. Continue Divalproex DR 250mg bid for mood Continue Risperidone 1mg bid for agitation and psychosis (06/05) Continue Melatonin for sleep/wake cycle regulation (06/03) Continue Trazodone 50mg qhs prn insomnia (06/03) (2) Schizophrenia Current Visit: Yes Status: Acute Plan to address problem: As above (3) Altered mental state Current Visit: No Status: Acute Qualifiers: Altered mental status type: unspecified Qualified Code(s): R41.82 - Altered mental status, unspecified Plan to address problem: As above
--- NOTE | 2019-06-10 10:47 | Progress Note ---
Subjective Date of service: 06/10/19 Principal diagnosis: Dementia with behavioral disturbance, Schizophrenia Subjective Comment: Patient confused but calm and cooperative with cares. He is compliant with medications. No reported or observed side effects. He is intermittently agitated, easier to redirect. He is unsteady but wants to pace. He is on 1:1. He feeds himself and his appetite is good. Sleep is good. Objective - Criteria for Continued Treatment Criteria for Continued Treatment: Improving Level of Functioning, Stablizing Level of Functioning, Improving Emotional/Socia - Mental Status Mental Status: Oriented x 1 Person only Assessment and Plan - Patient Problems (1) Major neurocognitive disorder due to Alzheimer's disease, with behavioral disturbance Current Visit: Yes Status: Acute Plan to address problem: Patient will be admitted for inpatient psychiatric evaluation, medication adjustment and close monitoring The patient's behavior, mood, sleep and appetite will be closely monitored. Patient will be enrolled in individual and group therapeutic sessions and encouraged to attend. Patient will be provided with a safe and structured environment. Patient's physical health needs will be addressed by the Hospitalist. Social Assessment will be completed and the Pull Over Machine Operator will work with patient and family to ensure a suitable and safe disposition Medication adjustment will be made as clinically indicated. Continue Divalproex DR 250mg bid for mood Continue Risperidone 1mg bid for agitation and psychosis (06/05) Continue Melatonin for sleep/wake cycle regulation (06/03) Continue Trazodone 50mg qhs prn insomnia (06/03) (2) Schizophrenia Current Visit: Yes Status: Acute Plan to address problem: As above (3) Altered mental state Current Visit: No Status: Acute Qualifiers: Altered mental status type: unspecified Qualified Code(s): R41.82 - Altered mental status, unspecified Plan to address problem: As above
[2019-06-10] MEDS: RisperDAL PO SCH ×2 (11:22→21:32)
[2019-06-10] MEDS: ATIVAN PO PRN (20:28)
[2019-06-10] MEDS: MELATONIN PO SCH (21:32)
[2019-06-11] MEDS: RisperDAL PO SCH ×2 (10:16→21:09)
--- NOTE | 2019-06-11 11:01 | Progress Note ---
Subjective Date of service: 06/11/19 Principal diagnosis: Dementia with behavioral disturbance, Schizophrenia Subjective Comment: Patient is pleasantly confused, calm and cooperative with cares. He is compliant with medications. No reported or observed side effects. No aggressive behaviors. His gait is more steady. He is not requiring 1:1. He feeds himself and his appetite is good. Sleep is good. Speech Language Pathologist Assistant is working on Placement. Objective - Criteria for Continued Treatment Criteria for Continued Treatment: Stablizing Level of Functioning - Mental Status Mental Status: Oriented x [address] - Objective Observation Participation Level: Full Assessment and Plan - Patient Problems (1) Major neurocognitive disorder due to Alzheimer's disease, with behavioral disturbance Current Visit: Yes Status: Acute Plan to address problem: Patient will be admitted for inpatient psychiatric evaluation, medication adjustment and close monitoring The patient's behavior, mood, sleep and appetite will be closely monitored. Patient will be enrolled in individual and group therapeutic sessions and encouraged to attend. Patient will be provided with a safe and structured environment. Patient's physical health needs will be addressed by the Hospitalist. Social Assessment will be completed and the Speech Language Pathologist Assistant will work with patient and family to ensure a suitable and safe disposition Medication adjustment will be made as clinically indicated. Continue Divalproex DR 250mg bid for mood Continue Risperidone 1mg bid for agitation and psychosis (06/05) Continue Melatonin for sleep/wake cycle regulation (06/03) Continue Trazodone 50mg qhs prn insomnia (06/03) Check Valproic acid level in am tomorrow. (2) Schizophrenia Current Visit: Yes Status: Acute Plan to address problem: As above (3) Altered mental state Current Visit: No Status: Acute Qualifiers: Altered mental status type: unspecified Qualified Code(s): R41.82 - Altered mental status, unspecified Plan to address problem: As above
[2019-06-11] MEDS: MELATONIN PO SCH (21:09)
[2019-06-12] MEDS: RisperDAL PO SCH ×2 (09:00→21:22)
--- NOTE | 2019-06-12 10:49 | Progress Note ---
Subjective Date of service: 06/12/19 Principal diagnosis: Dementia with behavioral disturbance, Schizophrenia Subjective Comment: Patient is pleasantly confused, calm and cooperative with cares. He is compliant with medications. No reported or observed side effects. No aggressive behaviors. His gait is more steady. He is not requiring 1:1. He feeds himself and his appetite is good. Sleep is good. Cdl Dedicated Truck Driver is working on Placement. Objective - Criteria for Continued Treatment Criteria for Continued Treatment: Stablizing Level of Functioning - Mental Status Mental Status: Oriented x [address] - Objective Observation Participation Level: Full Assessment and Plan - Patient Problems (1) Major neurocognitive disorder due to Alzheimer's disease, with behavioral disturbance Current Visit: Yes Status: Acute Plan to address problem: Patient will be admitted for inpatient psychiatric evaluation, medication adjustment and close monitoring The patient's behavior, mood, sleep and appetite will be closely monitored. Patient will be enrolled in individual and group therapeutic sessions and encouraged to attend. Patient will be provided with a safe and structured environment. Patient's physical health needs will be addressed by the Hospitalist. Social Assessment will be completed and the Cdl Dedicated Truck Driver will work with patient and family to ensure a suitable and safe disposition Medication adjustment will be made as clinically indicated. Continue Divalproex DR 250mg bid for mood Continue Risperidone 1mg bid for agitation and psychosis (06/05) Continue Melatonin for sleep/wake cycle regulation (06/03) Continue Trazodone 50mg qhs prn insomnia (06/03) (2) Schizophrenia Current Visit: Yes Status: Acute Plan to address problem: As above (3) Altered mental state Current Visit: No Status: Acute Qualifiers: Altered mental status type: unspecified Qualified Code(s): R41.82 - Altered mental status, unspecified Plan to address problem: As above
[2019-06-12] MEDS: ATIVAN PO PRN (20:24)
[2019-06-12] MEDS: MELATONIN PO SCH (21:22)
[2019-06-13] MEDS: RisperDAL PO SCH ×2 (09:00→21:57)
--- NOTE | 2019-06-13 10:16 | Progress Note ---
Subjective Date of service: 06/13/19 Principal diagnosis: Dementia with behavioral disturbance, Schizophrenia Subjective Comment: Patient is pleasantly confused, calm and cooperative with cares. He is compliant with medications. No reported or observed side effects. No aggressive behaviors. His gait is more steady. He is not requiring 1:1. He feeds himself and his appetite is good. Sleep is good. Steam Finisher is working on Placement. Objective - Criteria for Continued Treatment Criteria for Continued Treatment: Stablizing Level of Functioning - Mental Status Mental Status: Oriented x [address] - Objective Observation Participation Level: Full Assessment and Plan - Patient Problems (1) Major neurocognitive disorder due to Alzheimer's disease, with behavioral disturbance Current Visit: Yes Status: Acute Plan to address problem: Patient will be admitted for inpatient psychiatric evaluation, medication adjustment and close monitoring The patient's behavior, mood, sleep and appetite will be closely monitored. Patient will be enrolled in individual and group therapeutic sessions and encouraged to attend. Patient will be provided with a safe and structured environment. Patient's physical health needs will be addressed by the Hospitalist. Social Assessment will be completed and the Steam Finisher will work with patient and family to ensure a suitable and safe disposition Medication adjustment will be made as clinically indicated. Continue Divalproex DR 250mg bid for mood Continue Risperidone 1mg bid for agitation and psychosis (06/05) Continue Melatonin for sleep/wake cycle regulation (06/03) Continue Trazodone 50mg qhs prn insomnia (06/03) (2) Schizophrenia Current Visit: Yes Status: Acute Plan to address problem: As above (3) Altered mental state Current Visit: No Status: Acute Qualifiers: Altered mental status type: unspecified Qualified Code(s): R41.82 - Altered mental status, unspecified Plan to address problem: As above
[2019-06-13] MEDS: MELATONIN PO SCH (21:57)
[2019-06-14] MEDS: RisperDAL PO SCH ×2 (09:23→22:08)
[2019-06-14] MEDS: MELATONIN PO SCH (22:08)
--- NOTE | 2019-06-15 07:56 | Progress Note ---
Subjective Date of service: 06/15/19 Principal diagnosis: Dementia with behavioral disturbance, Schizophrenia Subjective Comment: Patient is pleasantly confused, calm and cooperative with cares. He is compliant with medications. No reported or observed side effects. No aggressive behaviors. His gait is more steady. He is not requiring 1:1. He feeds himself and his appetite is good. Sleep is good. Summer Camp Counselor is working on Placement. Objective - Criteria for Continued Treatment Criteria for Continued Treatment: Improving Level of Functioning, Stablizing Level of Functioning - Mental Status Mental Status: Oriented x [address] - Objective Observation Participation Level: Moderate Assessment and Plan - Patient Problems (1) Major neurocognitive disorder due to Alzheimer's disease, with behavioral disturbance Current Visit: Yes Status: Acute Plan to address problem: Patient will be admitted for inpatient psychiatric evaluation, medication adjustment and close monitoring The patient's behavior, mood, sleep and appetite will be closely monitored. Patient will be enrolled in individual and group therapeutic sessions and encouraged to attend. Patient will be provided with a safe and structured environment. Patient's physical health needs will be addressed by the Hospitalist. Social Assessment will be completed and the Summer Camp Counselor will work with patient and family to ensure a suitable and safe disposition Medication adjustment will be made as clinically indicated. Continue Divalproex DR 250mg bid for mood Continue Risperidone 1mg bid for agitation and psychosis (06/05) Continue Melatonin for sleep/wake cycle regulation (06/03) Continue Trazodone 50mg qhs prn insomnia (06/03) (2) Schizophrenia Current Visit: Yes Status: Acute Plan to address problem: As above (3) Altered mental state Current Visit: No Status: Acute Qualifiers: Altered mental status type: unspecified Qualified Code(s): R41.82 - Altered mental status, unspecified Plan to address problem: As above Medications & Allergies - Medications Allergies/Adverse Reactions: Allergies No Known Allergies Allergy (Unverified 06/01/19 01:08) Home Medications: Home Medications Medication Instructions Recorded Confirmed Last Taken Type No Known Home Medications [No 06/01/19 06/02/19 Unknown History Reported Home Medications] Active Medications: Generic Name Dose Route Start Last Admin Trade Name Freq PRN Reason Stop Dose Admin Divalproex Sodium 250 mg 06/02/19 10:00 06/14/19 22:08 Alexandria Lopez PO Not Given BID JANIE Haloperidol 5 mg 06/02/19 00:58 06/09/19 22:04 Haldol PO 5 mg Q6H PRN Administration Agitation Haloperidol Lactate 5 mg 06/02/19 00:58 06/08/19 04:56 Haldol IM 5 mg Q6H PRN Administration Agitation Lorazepam 2 mg 06/02/19 00:54 06/12/19 20:24 Ativan PO 2 mg Q6HR PRN Administration Agitation Lorazepam 2 mg 06/02/19 00:54 06/08/19 04:57 Ativan IM 2 mg Q6HR PRN Administration Agitation Melatonin 5 mg 06/02/19 22:00 06/14/19 22:08 Melatonin PO Not Given QHS JANIE Risperidone 1 mg 06/05/19 10:00 06/14/19 22:08 Risperdal PO Not Given BID JANIE
[2019-06-15] MEDS: RisperDAL PO SCH ×3 (09:44→21:20)
[2019-06-15] MEDS: MELATONIN PO SCH (21:20)
[2019-06-16] MEDS: RisperDAL PO SCH ×2 (10:24→21:55)
--- NOTE | 2019-06-16 19:48 | Progress Note ---
Subjective Date of service: 06/16/19 Principal diagnosis: Dementia with behavioral disturbance, Schizophrenia Subjective Comment: Patient is upset that he is still in the hospital, refused to take his medications and refused vital signs. He is talking more than usual to himself - unclear if he is responding to internal stimuli. No SI/HI. Carrot Tier is working on Placement. Objective - Criteria for Continued Treatment Criteria for Continued Treatment: Stablizing Level of Functioning - Mental Status Mental Status: Oriented x [address] - Objective Observation Participation Level: Moderate Assessment and Plan - Patient Problems (1) Major neurocognitive disorder due to Alzheimer's disease, with behavioral disturbance Current Visit: Yes Status: Acute Plan to address problem: Patient will be admitted for inpatient psychiatric evaluation, medication adjustment and close monitoring The patient's behavior, mood, sleep and appetite will be closely monitored. Patient will be enrolled in individual and group therapeutic sessions and encouraged to attend. Patient will be provided with a safe and structured environment. Patient's physical health needs will be addressed by the Hospitalist. Social Assessment will be completed and the Carrot Tier will work with patient and family to ensure a suitable and safe disposition Medication adjustment will be made as clinically indicated. Continue Divalproex DR 250mg bid for mood Continue Risperidone 1mg bid for agitation and psychosis (06/05) Continue Melatonin for sleep/wake cycle regulation (06/03) Continue Trazodone 50mg qhs prn insomnia (06/03) (2) Schizophrenia Current Visit: Yes Status: Acute Plan to address problem: As above (3) Altered mental state Current Visit: No Status: Acute Qualifiers: Altered mental status type: unspecified Qualified Code(s): R41.82 - Altered mental status, unspecified Medications & Allergies - Medications Allergies/Adverse Reactions: Allergies No Known Allergies Allergy (Unverified 06/01/19 01:08) Home Medications: Home Medications Medication Instructions Recorded Confirmed Last Taken Type No Known Home Medications [No 06/01/19 06/02/19 Unknown History Reported Home Medications] Active Medications: Generic Name Dose Route Start Last Admin Trade Name Freq PRN Reason Stop Dose Admin Divalproex Sodium 250 mg 06/02/19 10:00 06/16/19 10:[address] PO Not Given BID JANIE Haloperidol 5 mg 06/02/19 00:58 06/09/19 22:04 Haldol PO 5 mg Q6H PRN Administration Agitation Haloperidol Lactate 5 mg 06/02/19 00:58 06/08/19 04:56 Haldol IM 5 mg Q6H PRN Administration Agitation Lorazepam 2 mg 06/02/19 00:54 06/12/19 20:24 Ativan PO 2 mg Q6HR PRN Administration Agitation Lorazepam 2 mg 06/02/19 00:54 06/08/19 04:57 Ativan IM 2 mg Q6HR PRN Administration Agitation Melatonin 5 mg 06/02/19 22:00 06/15/19 21:20 Melatonin PO Not Given QHS JANIE Risperidone 1 mg 06/05/19 10:00 06/16/19 10:24 Risperdal PO Not Given BID JANIE
[2019-06-16] MEDS: MELATONIN PO SCH (21:55)
--- NOTE | 2019-06-17 09:21 | Progress Note ---
Subjective Date of service: 06/17/19 Principal diagnosis: Dementia with behavioral disturbance, Schizophrenia Subjective Comment: No change from yesterday. He is upset that he is still in the hospital, refused to take his medications and refused vital signs. He is talking more than usual to himself - unclear if he is responding to internal stimuli. No SI/HI. Merchandise Associate is working on Placement. Objective - Criteria for Continued Treatment Criteria for Continued Treatment: Improving Level of Functioning, Stablizing Level of Functioning, Improving Emotional/Socia - Mental Status Mental Status: Oriented x [address] - Objective Observation Participation Level: Minimal Assessment and Plan - Patient Problems (1) Major neurocognitive disorder due to Alzheimer's disease, with behavioral disturbance Current Visit: Yes Status: Acute Plan to address problem: Patient will be admitted for inpatient psychiatric evaluation, medication adjustment and close monitoring The patient's behavior, mood, sleep and appetite will be closely monitored. Patient will be enrolled in individual and group therapeutic sessions and encouraged to attend. Patient will be provided with a safe and structured environment. Patient's physical health needs will be addressed by the Hospitalist. Social Assessment will be completed and the Merchandise Associate will work with patient and family to ensure a suitable and safe disposition Medication adjustment will be made as clinically indicated. Continue Divalproex DR 250mg bid for mood Continue Risperidone 1mg bid for agitation and psychosis (06/05) Continue Melatonin for sleep/wake cycle regulation (06/03) Continue Trazodone 50mg qhs prn insomnia (06/03) (2) Schizophrenia Current Visit: Yes Status: Acute Plan to address problem: As above (3) Altered mental state Current Visit: No Status: Acute Qualifiers: Altered mental status type: unspecified Qualified Code(s): R41.82 - Altered mental status, unspecified Plan to address problem: As above Medications & Allergies - Medications Allergies/Adverse Reactions: Allergies No Known Allergies Allergy (Unverified 06/01/19 01:08) Home Medications: Home Medications Medication Instructions Recorded Confirmed Last Taken Type No Known Home Medications [No 06/01/19 06/02/19 Unknown History Reported Home Medications] Active Medications: Generic Name Dose Route Start Last Admin Trade Name Freq PRN Reason Stop Dose Admin Divalproex Sodium 250 mg 06/02/19 10:00 06/16/19 21:54 Depakoholly Lopez PO Not Given BID JANIE Haloperidol 5 mg 06/02/19 00:58 06/09/19 22:04 Haldol PO 5 mg Q6H PRN Administration Agitation Haloperidol Lactate 5 mg 06/02/19 00:58 06/08/19 04:56 Haldol IM 5 mg Q6H PRN Administration Agitation Lorazepam 2 mg 06/02/19 00:54 06/12/19 20:24 Ativan PO 2 mg Q6HR PRN Administration Agitation Lorazepam 2 mg 06/02/19 00:54 06/08/19 04:57 Ativan IM 2 mg Q6HR PRN Administration Agitation Melatonin 5 mg 06/02/19 22:00 06/16/19 21:55 Melatonin PO Not Given QHS JANIE Risperidone 1 mg 06/05/19 10:00 06/16/19 21:55 Risperdal PO Not Given BID JANIE
[2019-06-17] MEDS: RisperDAL PO SCH ×2 (10:56→21:16)
[2019-06-17] MEDS: MELATONIN PO SCH (21:15)
--- NOTE | 2019-06-18 08:08 | Progress Note ---
Subjective Date of service: 06/18/19 Principal diagnosis: Dementia with behavioral disturbance, Schizophrenia Subjective Comment: No change. He is upset that he is still in the hospital, refused to take his medications and refused vital signs. He is talking more than usual to himself - unclear if he is responding to internal stimuli. No SI/HI. Wheel Adjuster is working on Placement. Objective - Criteria for Continued Treatment Criteria for Continued Treatment: Improving Level of Functioning, Improving Treatment / Medication Compliance, Stablizing Level of Functioning, Improving Emotional/Socia - Mental Status Mental Status: Oriented x [address] - Objective Observation Participation Level: Minimal Assessment and Plan - Patient Problems (1) Major neurocognitive disorder due to Alzheimer's disease, with behavioral disturbance Current Visit: Yes Status: Acute Plan to address problem: Patient will be admitted for inpatient psychiatric evaluation, medication adjustment and close monitoring The patient's behavior, mood, sleep and appetite will be closely monitored. Patient will be enrolled in individual and group therapeutic sessions and encouraged to attend. Patient will be provided with a safe and structured environment. Patient's physical health needs will be addressed by the Hospitalist. Social Assessment will be completed and the Wheel Adjuster will work with patient and family to ensure a suitable and safe disposition Medication adjustment will be made as clinically indicated. Continue Divalproex DR 250mg bid for mood Continue Risperidone 1mg bid for agitation and psychosis (06/05) Continue Melatonin for sleep/wake cycle regulation (06/03) Continue Trazodone 50mg qhs prn insomnia (06/03) (2) Schizophrenia Current Visit: Yes Status: Acute Plan to address problem: As above (3) Altered mental state Current Visit: No Status: Acute Qualifiers: Altered mental status type: unspecified Qualified Code(s): R41.82 - Altered mental status, unspecified Plan to address problem: As above Medications & Allergies - Medications Allergies/Adverse Reactions: Allergies No Known Allergies Allergy (Unverified 06/01/19 01:08) Home Medications: Home Medications Medication Instructions Recorded Confirmed Last Taken Type No Known Home Medications [No 06/01/19 06/02/19 Unknown History Reported Home Medications] Active Medications: Generic Name Dose Route Start Last Admin Trade Name Freq PRN Reason Stop Dose Admin Divalproex Sodium 250 mg 06/02/19 10:00 06/17/19 21:[address] PO Not Given BID JANIE Haloperidol 5 mg 06/02/19 00:58 06/09/19 22:04 Haldol PO 5 mg Q6H PRN Administration Agitation Haloperidol Lactate 5 mg 06/02/19 00:58 06/08/19 04:56 Haldol IM 5 mg Q6H PRN Administration Agitation Lorazepam 2 mg 06/02/19 00:54 06/12/19 20:24 Ativan PO 2 mg Q6HR PRN Administration Agitation Lorazepam 2 mg 06/02/19 00:54 06/08/19 04:57 Ativan IM 2 mg Q6HR PRN Administration Agitation Melatonin 5 mg 06/02/19 22:00 06/17/19 21:15 Melatonin PO Not Given QHS JANIE Risperidone 1 mg 06/05/19 10:00 06/17/19 21:16 Risperdal PO Not Given BID JANIE
[2019-06-18] MEDS: RisperDAL PO SCH ×3 (10:45→23:17)
[2019-06-18] MEDS: MELATONIN PO SCH ×2 (21:44→23:16)
[2019-06-19] MEDS: RisperDAL PO SCH ×2 (10:00→21:23)
[2019-06-19] MEDS: MELATONIN PO SCH (21:23)
--- NOTE | 2019-06-20 09:02 | Progress Note ---
Subjective Date of service: 06/19/19 Principal diagnosis: Dementia with behavioral disturbance, Schizophrenia Subjective Comment: The patient is calm and pleasant. He wants to go home. He feeds himself and able to perform ADLs. He sleeps well at night. No aggressive behaviors. No SI/HI. Embroidery Cutter is working on Placement. Objective - Criteria for Continued Treatment Criteria for Continued Treatment: Stablizing Level of Functioning - Mental Status Mental Status: Oriented x [address] - Objective Observation Participation Level: Moderate Assessment and Plan - Patient Problems (1) Major neurocognitive disorder due to Alzheimer's disease, with behavioral disturbance Current Visit: Yes Status: Acute Plan to address problem: Patient will be admitted for inpatient psychiatric evaluation, medication adjus tment and close monitoring The patient's behavior, mood, sleep and appetite will be closely monitored. Patient will be enrolled in individual and group therapeutic sessions and encouraged to attend. Patient will be provided with a safe and structured environment. Patient's physical health needs will be addressed by the Hospitalist. Social Assessment will be completed and the Embroidery Cutter will work with patient and family to ensure a suitable and safe disposition Medication adjustment will be made as clinically indicated. Continue Divalproex DR 250mg bid for mood Continue Risperidone 1mg bid for agitation and psychosis (06/05) Continue Melatonin for sleep/wake cycle regulation (06/03) Continue Trazodone 50mg qhs prn insomnia (06/03) (2) Schizophrenia Current Visit: Yes Status: Acute Plan to address problem: As above (3) Altered mental state Current Visit: No Status: Acute Qualifiers: Altered mental status type: unspecified Qualified Code(s): R41.82 - Altered mental status, unspecified Plan to address problem: As above
--- NOTE | 2019-06-20 09:03 | Progress Note ---
Subjective Date of service: 06/20/19 Principal diagnosis: Dementia with behavioral disturbance, Schizophrenia Subjective Comment: The patient is calm and pleasant. He wants to go home. He feeds himself and able to perform ADLs. He sleeps well at night. No aggressive behaviors. No SI/HI. Patch Setter is working on Placement. Objective - Criteria for Continued Treatment Criteria for Continued Treatment: Stablizing Level of Functioning - Mental Status Mental Status: Oriented x [address] & [address] - Objective Observation Participation Level: Full Assessment and Plan - Patient Problems (1) Major neurocognitive disorder due to Alzheimer's disease, with behavioral disturbance Current Visit: Yes Status: Acute Plan to address problem: Patient will be admitted for inpatient psychiatric evaluation, medication adjustment and close monitoring The patient's behavior, mood, sleep and appetite will be closely monitored. Patient will be enrolled in individual and group therapeutic sessions and encouraged to attend. Patient will be provided with a safe and structured environment. Patient's physical health needs will be addressed by the Hospitalist. Social Assessment will be completed and the Patch Setter will work with patient and family to ensure a suitable and safe disposition Medication adjustment will be made as clinically indicated. Continue Divalproex DR 250mg bid for mood Continue Risperidone 1mg bid for agitation and psychosis (06/05) Continue Melatonin for sleep/wake cycle regulation (06/03) Continue Trazodone 50mg qhs prn insomnia (06/03) (2) Schizophrenia Current Visit: Yes Status: Acute Plan to address problem: As above (3) Altered mental state Current Visit: No Status: Acute Qualifiers: Altered mental status type: unspecified Qualified Code(s): R41.82 - Altered mental status, unspecified Plan to address problem: As above
[2019-06-20] MEDS: RisperDAL PO SCH ×3 (09:24→22:10)
[2019-06-20 18:21] VITALS: BP 135/78
[2019-06-20] MEDS: MELATONIN PO SCH (22:10)
[2019-06-21] MEDS: ATIVAN IM PRN (09:25)
[2019-06-21] MEDS: HALDOL IM PRN (09:25)
[2019-06-21] MEDS: RisperDAL PO SCH (09:51)
--- NOTE | 2019-06-21 11:15 | XRay Report ---
CHEST 1 VIEW INDICATION: rule out TB. COMPARISON: 06/01/2019 FINDINGS: Support devices: None. Heart: Within normal limits. Lungs/Pleura: No acute air space or interstitial disease. Additional findings: None. IMPRESSION: No acute findings. Signer Name: Justin Bennett Jr, MD Signed: 06/21/2019 11:10 AM Workstation Name: [id number]
--- NOTE | 2019-06-21 11:43 | Discharge Summary ---
Providers - Providers Date of Admission: 06/02/19 00:47 Date of discharge: 06/21/19 Attending physician: RADHA ERICKSON MD 06/02/19 00:47 Consult to Physician [CONS] Routine Comment: Consulting Provider: MICHELE SALGADO Physician Instructions: Reason For Exam: H&P/Medical Primary care physician: [facility], Hospitalization Reason for admission: Altered mental status, combative behavior and agitation. Allergies/Adverse Reactions: Allergies No Known Allergies Allergy (Unverified 06/01/19 01:08) Vital Signs: Last Vital Signs Temp 98.3 F 06/20/19 09:23 Pulse 83 06/20/19 09:23 Resp 18 06/20/19 09:23 BP 135/78 06/20/19 09:23 Pulse Ox 94 06/20/19 09:23 Last Lab: Laboratory Last Values WBC 9.7 K/mm3 (4.5-11.0) 06/02/19 02:20 RBC 4.85 M/mm3 (3.65-5.03) 06/02/19 02:20 Hgb 15.7 gm/dl (11.8-15.2) H 06/02/19 02:20 Hct 46.8 % (35.5-45.6) H 06/02/19 02:20 MCV 96 fl (84-94) H 06/02/19 02:20 MCH 32 pg (28-32) 06/02/19 02:20 MCHC 34 % (32-34) 06/02/19 02:20 RDW 15.0 % (13.2-15.2) 06/02/19 02:20 Plt Count 455 K/mm3 (140-440) H 06/02/19 02:20 Lymph % (Auto) 37.0 % (13.4-35.0) H 06/02/19 02:20 [place] % (Auto) 8.7 % (0.0-7.3) H 06/02/19 02:20 Eos % (Auto) 2.8 % (0.0-4.3) 06/02/19 02:20 Baso % (Auto) 1.3 % (0.0-1.8) 06/02/19 02:20 Lymph # 3.6 K/mm3 (1.2-5.4) 06/02/19 02:20 [place] # 0.8 K/mm3 (0.0-0.8) 06/02/19 02:20 Eos # 0.3 K/mm3 (0.0-0.4) 06/02/19 02:20 Baso # 0.1 K/mm3 (0.0-0.1) 06/02/19 02:20 Seg Neutrophils % 50.2 % (40.0-70.0) 06/02/19 02:20 Seg Neutrophils # 4.9 K/mm3 (1.8-7.7) 06/02/19 02:20 Sodium 139 mmol/L (137-145) 06/02/19 02:20 Potassium 4.7 mmol/L (3.6-5.0) D 06/02/19 02:20 Chloride 101.8 mmol/L (98-107) 06/02/19 02:20 Carbon Dioxide 24 mmol/L (22-30) 06/02/19 02:20 18 mmol/L 06/02/19 02:20 BUN 12 mg/dL (9-20) 06/02/19 02:20 0.8 mg/dL (0.8-1.5) 06/02/19 02:20 Estimated GFR > 60 ml/min 06/02/19 02:20 15 % 06/02/19 02:20 Glucose 126 mg/dL (75-100) H 06/02/19 02:20 5.5 % (4-6) 06/02/19 02:20 Calcium 10.1 mg/dL (8.4-10.2) 06/02/19 02:20 0.60 mg/dL (0.1-1.2) 06/02/19 02:20 AST 28 units/L (5-40) 06/02/19 02:20 ALT 17 units/L (7-56) 06/02/19 02:20 149 units/L (35-129) H 06/02/19 02:20 7.6 g/dL (6.3-8.2) 06/02/19 02:20 4.2 g/dL (3.9-5) 06/02/19 02:20 1.2 % 06/02/19 02:20 Triglycerides 154 mg/dL (2-149) H 07/30/19 07:20 Cholesterol 114 mg/dL (50-199) 06/04/19 07:20 76 mg/dL (50-130) 06/04/19 07:20 28 mg/dL (40-59) L 06/04/19 07:20 4.07 % 06/04/19 07:20 TSH 1.210 mlU/mL (0.270-4.200) 06/02/19 02:20 Valproic Acid 33.1 ug/mL (50-100) L 06/12/19 07:03 - Discharge Diagnoses (1) Major neurocognitive disorder due to Alzheimer's disease, with behavioral disturbance Status: Acute (2) Schizophrenia Status: Acute (3) Altered mental state Status: Acute Qualifiers: Altered mental status type: unspecified Qualified Code(s): R41.82 - Altered mental status, unspecified Core Measure Documentation - Palliative Care Palliative Care/ Comfort Measures: Not Applicable Exam - Constitutional Vitals: Temp Pulse Resp BP Pulse Ox 98.3 F 83 18 135/78 94 06/20/19 09:23 06/20/19 09:23 06/20/19 09:23 06/20/19 09:23 06/20/19 09:23 Plan Care Plan Goals: Safe and Healthy living Plan of Treatment: Out-patient care Health Concerns: Memory decline Assessment: Dementia, Schizophrenia Follow up with: CHARLI GAFFNEY MD [Primary Care Provider] - 7 Days Prescriptions: Melatonin [Melatonin 5MG TAB] 5 mg PO QHS #30 tablet Divalproex [Depakote Dr] 250 mg PO BID #60 tablet risperiDONE [RisperDAL] 1 mg PO BID #60 tablet
== END 2019-06-21 16:18 | disposition home or self-care (01) | DRG 57 ==
LOC: UNDOADMIN 23:30 → 3A 23:30 → 5A 06-02 00:47
PROVIDERS: ADMIT Psychiatry & Neurology Psychiatry; ATTEND Psychiatry & Neurology Psychiatry
DX: G30.8 Other Alzheimer's disease (principal); F20.0 Paranoid schizophrenia; F02.81 Dementia in other diseases classified elsewhere, unspecified severity, with behavioral disturbance; R45.1 Restlessness and agitation; I10 Essential (primary) hypertension; Z82.49 Family history of ischemic heart disease and other diseases of the circulatory system
CPT/HCPCS: 36415; 71045; 80053; 80061; 80164; 83036; 84443; 85025; 93005; 96360; 96372; G0378; J1630; J2060; J7030